=== PATIENT | male | born 1975 | race African-American/Black ===

== ENCOUNTER 2017-02-13 19:41 | Emergency (ER) | payer SELFPAY ==
[~2017-02-13] VITALS: Ht 175.3 cm; Wt 111.0 kg
[2017-02-13] MEDS ORDERED: TETANUS, DIPHTHERIA, PERTUSSIS VAC/PF 0.5ML (>7YR OLD) IM ONE (20:45)
[2017-02-13] MEDS ORDERED: IBUPROFEN 600MG TABLET PO ONE (20:45)
[2017-02-13] MEDS ORDERED: BACITRACIN ZINC OINT UDPKT TOP ONE (20:45)
[2017-02-13 23:00] VITALS: BP 128/80
== END 2017-02-13 23:22 | disposition home or self-care (01) ==
LOC: ER 19:54
DX: S80.12XA Contusion of left lower leg, initial encounter (principal); S80.11XA Contusion of right lower leg, initial encounter; I10 Essential (primary) hypertension; J45.909 Unspecified asthma, uncomplicated; W19.XXXA Unspecified fall, initial encounter; Y93.89 Activity, other specified; Y92.89 Other specified places as the place of occurrence of the external cause; Y99.8 Other external cause status
CPT/HCPCS: 73590; 90471; 90715; 99284